=== PATIENT | female | born 1960 | race Caucasian/White ===

== ENCOUNTER 2025-04-14 06:25 | Day surgery (SDC) | payer BC, OTHER, SELFPAY | END 2025-04-14 12:34 | disposition home or self-care (01) | LOC: GI 06:25 | PROVIDERS: ATTENDING PHYSICIAN Internal Medicine Gastroenterology | DX: R19.4 Change in bowel habit (principal); K57.30 Diverticulosis of large intestine without perforation or abscess without bleeding; K44.9 Diaphragmatic hernia without obstruction or gangrene; K22.89 Other specified disease of esophagus; K31.89 Other diseases of stomach and duodenum; K21.9 Gastro-esophageal reflux disease without esophagitis; D12.8 Benign neoplasm of rectum; K52.832 Lymphocytic colitis; K29.50 Unspecified chronic gastritis without bleeding; K31.A11 Gastric intestinal metaplasia without dysplasia, involving the antrum | CPT/HCPCS: 45380; 43239; 88305; 88313; 88342 ==